=== PATIENT | female | born 1975 | race Caucasian/White ===

== ENCOUNTER 2020-02-20 08:58 | Outpatient (CLI) | payer OTHER, SELFPAY ==
--- NOTE | 2020-02-24 12:16 | P.PCNHOL_ITS ---
Holter/Event Monitor Holter/Event Monitor Date of procedure: 02/20/20 Procedure Type: 48 hour holter monitor Indications: Palpitations Conclusion: 1. 48 hour holter monitor on 02/20/20. 2. Underlying rhythm is sinus rhythm. HR range 60-141 bpm; average HR 94 bpm. 3. There are 3 premature supraventricular complexes. No supraventricular tachycardia. 4. There are 26 premature ventricular complexes. No ventricular tachycardia. 5. No sinoatrial or atrioventricular blocks. No significant pauses greater than 2 seconds. 6. Patient reports dizziness, chest pressure, shortness of breath, lightheade dness which demonstrate sinus rhythm, HR range 91-100 bpm.
== END 2020-02-20 08:59 | disposition home or self-care (01) ==
LOC: ANHCARD 09:01
PROVIDERS: PCP Internal Medicine; Visit Provider Internal Medicine
DX: R00.2 Palpitations (principal); R55 Syncope and collapse
CPT/HCPCS: 93225; 93226

== ENCOUNTER 2023-01-28 08:49 | Outpatient (CLI) | payer OTHER, SELFPAY ==
--- NOTE | ~2023-01-28 | MR_ITS ---
MRI of the brain Clinical History: Migraine headache Technique: Axial and sagittal T1-weighted images were acquired. These were followed by axial T2-weigh felicity, diffusion weighted, gradient, and FLAIR images. Following intravenous administration of 17 cc Mu ltiHance gadolinium, T1-weighted fat-sat imaging was performed in the axial and coronal planes. Findings: There is no abnormal signal in the brain parenchyma. No acute infarct, intracranial hemorrh age, or mass lesion. Ventricles and subarachnoid spaces are unremarkable. Orbits are unremarkable. Paranasal sinuses and m astoid air cells are clear. Major intracranial flow voids appear intact. Sagittal midline structures are intact. No abnormal postcontrast enhancement identified. IMPRESSION: Unremarkable exam. Reviewed, dictated and finalized at location M. IMPRESSION: Unremarkable exam.
== END 2023-01-28 08:50 ==
LOC: MICIMG 08:50
PROVIDERS: PCP Clinical Nurse Specialist; Visit Provider Clinical Nurse Specialist
DX: G43.909 Migraine, unspecified, not intractable, without status migrainosus (principal)
CPT/HCPCS: 70553; A9577

== ENCOUNTER → 2023-08-14 13:18 | Outpatient (CLI) | payer OTHER, SELFPAY ==
--- NOTE | ~2023-08-14 | MM_ITS ---
EXAMINATION: MM screening cora BI w amrik HISTORY: Screening TECHNIQUE: Craniocaudal and mediolateral oblique 3-D tomosynthesis images were obtained and synthetic 2-D images were generated. CAD analysis was submitted and interpreted. COMPARISON: No prior mammogram is available for comparison at this institution. BREAST PARENCHYMAL COMPOSITION: Not dense: There are scattered areas of fibroglandular density. FINDINGS: There is focal asymmetry in the upper outer quadrant of the right breast posteriorly. There are no suspicious masses, calcifications or architectural distortion in the left breast to suggest m alignancy. IMPRESSION: 1. Focal right breast asymmetry, upper outer quadrant. 2. Additional mammographic views and possible breast ultrasound are recommended. BI-RADS Category 0: Incomplete: Needs additional imaging evaluation. Reviewed, dictated and finalized at location A. 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 Focal right breast asymmetry, upper outer quadrant. 2. Additional mammographic views and possible breast ultrasound are recommended . BI-RADS Category 0: Incomplete: Needs additional imaging evaluation.
== END ==
PROVIDERS: PCP Obstetrics & Gynecology; Visit Provider Obstetrics & Gynecology
DX: Z12.31 Encounter for screening mammogram for malignant neoplasm of breast (principal); R92.8 Other abnormal and inconclusive findings on diagnostic imaging of breast
CPT/HCPCS: 77063; 77067

== ENCOUNTER 2023-09-08 12:55 | Outpatient (CLI) | payer OTHER, SELFPAY ==
--- NOTE | ~2023-09-08 | XR_ITS ---
XR shoulder LT min 2V DATE: 09/08/2023 13:13 INDICATION: Left shoulder pain TECHNIQUE: 4 views COMPARISON: None FINDINGS: No fracture or dislocation, periosteal reaction or bone destruction or abnormal soft tissue calcification. IMPRESSION: Negative Reviewed, dictated and finalized at location L. IMPRESSION: Negative
== END 2023-09-08 12:56 ==
PROVIDERS: PCP Clinical Nurse Specialist; Visit Provider Clinical Nurse Specialist
DX: M25.512 Pain in left shoulder (principal)
CPT/HCPCS: 73030

== ENCOUNTER 2023-09-30 08:43 | Outpatient (CLI) | payer OTHER, SELFPAY ==
--- NOTE | ~2023-09-30 | MMUS_ITS ---
EXAMINATION: MM diagnostic cora RT w amrik, US breast RT limited HISTORY: Focal asymmetry in upper outer quadrant of right breast on August 14, 2023 screening mammo gram TECHNIQUE: Additional 3-D tomosynthesis images of the right breast were performed and synthetic 2-D i mages were generated. CAD analysis was submitted and interpreted. High resolution upper outer and low er-outer quadrant right breast ultrasound was performed. COMPARISON: 04/12/2014 [facility] bilateral screening mammogram August 14, 2023 bilateral screening mammogram BREAST PARENCHYMAL COMPOSITION: There are scattered areas of fibroglandular density. FINDINGS: MAMMOGRAPHIC FINDINGS: There is a history of reduction mammoplasty in 2001. There is stable chronic architectural distortion without significant new or developing density of the right breast compared to 04/12/2014. ULTRASOUND: There is broad area of shadowing in the right breast at 8:00 5 cm from the nipple, without abnormal v ascularity on color flow imaging , most likely due to scarring from reduction mammoplasty. IMPRESSION: 1. Status post reduction mammoplasty with chronic stable architectural distortion since 04/12/2014 2. Routine annual mammographic screening is recommended BI-RADS Category 2: Benign finding(s). Reviewed, dictated and finalized at location A. IMPRESSION: 1. Status post reduction mammoplasty with chronic stable architectural distorti on since 04/12/2014 2. Routine annual mammographic screening is recommended BI-RADS Category 2: Benign finding(s).
== END 2023-09-30 08:44 ==
LOC: MICIMG 08:43
PROVIDERS: PCP Clinical Nurse Specialist; Visit Provider Clinical Nurse Specialist
DX: R92.8 Other abnormal and inconclusive findings on diagnostic imaging of breast (principal)
CPT/HCPCS: 76642; 77061; 77065; G0279

== ENCOUNTER 2023-10-21 15:30 | Outpatient (RCR) | payer OTHER, SELFPAY ==
[2023-09-14 13:55] VITALS: BP_SYST 90
--- NOTE | 2023-09-14 15:10 | OPREHPOC ---
Outpatient Therapy Plan of Care This is a Multidisciplinary Plan of Care that may contain components documented by all disciplines (PT, OT, and ST.) PT Problem 1 PT Problem #1 Knowledge Deficit PT Goal 1 Goal *indep with HEP * good posture of shoulder with exercises PT Problem 2 PT Problem #2 Pain PT Goal 1 Goal 1* pt report pain at worst rating of 4/10 2* pt report times of NO pain in shoulder 3* pt report with sleeping awaken 1x/night 4* Quick DASH self assessment functional score of 30% limitation in activity level PT Problem 3 PT Problem #3 Impaired Strength PT Goal 1 Goal increase strength of L shoulder, to increase use of L arm for self care and home tasks: pt able to perform 5 reps in standing 1* flexion to 140' 2* abduction to 100' PT Problem 4 PT Problem #4 Impaired Flexibility PT Goal 1 Goal improve flexibility of L shoulder with supine active-assisted ROM: 1* flexion 150' 2* abduction 120' 3* standing IR, reach behind back, palm to above waist
--- NOTE | 2023-09-14 15:10 | PTOPEVAL1 ---
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; doing all of her home and work tasks with increase pain in L shoulder; Reported Pain Level Pain Score Self Report Additional Pain Score Comments pain range in the past week 4-810; throbs lateral shoulder, aches, shoots into fingertips- not able to state which fingertips numbness in palm and fingers-- feels like carpal tunnel pain, used the phone alot today and speaker phone does not always work when need to talk loud to elderly pts; increase pain: using L arm, lift arm overhead or behind back, lie on L side increase pain L elbow, wrist with driving and typing awaken from sleeping 2-3 x/night due to shoulder pain; normal sleep position is on R/L side; decrease pain: naproxen, ice; have not used heat Assessment PT Clinical Summary Juanita has the diagnosis of L shoulder pain, radicular into L fingers. Her history includes neck pain, L carpal tunnel and ulnar release surgery, breast reduction surgery. Quick DASH self assessment functional score of 45% limitation in activity. Her work is computer use and she has a dog that pulls on the leash, that she holds in her L hand. Sleep is disrupted and she has decreased use of her L arm due to pain. With the evaluation: she has rounded shoulder posture with increased cervical extension; decreased active ROM of L shoulder flexion, abduction and IR motions, with
[2023-10-21 15:15] VITALS: BP_SYST 130
--- NOTE | 2023-10-21 15:53 | PTOPDC ---
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 Compared to the initial evaluation: pain rating from 4-8/10 to 0-4/10; self assessment Quick DASH rating from 45 to 18% limitation in activity level; decreased radicular pain into L UE- recently only had after 30 minutes of raking in her yard; reported sleeping tolerance from awakening 2-3x/night to 1-2 x/wk; increased strength and use of L UE with home and self care tasks. Indep with HEP and posture correction. Active L shoulder ROM in standing: flexion 155', abduction 130', IR- reach behind back, palm to above waist and ER- reach palm to back of head. The goals were achieved. Discharge PT services. She is to continue with her HEP and posture monitoring. Plan of Care PT Services Indicated No
== END 2023-10-21 17:05 | disposition home or self-care (01) ==
LOC: ANHPT 15:30
PROVIDERS: PCP Clinical Nurse Specialist; Visit Provider Clinical Nurse Specialist
DX: M25.512 Pain in left shoulder (principal)
CPT/HCPCS: 97014; 97110; 97140; 97161; 97530; G0283

== ENCOUNTER 2025-06-06 08:11 | Emergency (ER) | payer OTHER, SELFPAY ==
--- NOTE | 2025-06-06 08:12 | ED_ITS ---
HPI - URI/Sore Throat General Chief Complaint: Upper Respiratory Infection Stated Complaint: Sinus Time Seen by Provider: 06/06/25 08:19 Source: patient, RN notes reviewed and old records reviewed Mode of arrival: ambulatory Limitations: no limitations History of Present Illness HPI Narrative: 50-year-old female presents to the [facility] with complaints of sore throat and sinus congestion. Patient reports on Thursday, 4 days ago started with a sore throat. Thursday congestion started, worse yesterday with a sore throat woke up this morning with headache. Did take ibuprofen Today. Last couple days she did take Mucinex. Denies fevers, cough, chest pain, abdominal pain, nausea or vomiting Onset (ago): day(s) (4) Treatments prior to arrival: ibuprofen and cold medicine Related Data Home Medications ?Medication ?Instructions ?Recorded ?Confirmed ?Last Taken ?Type Lactobacillus rhamnosus GG 5 PO 01/08/21 02/16/25 Unkn own History billion cell oral powder packet ([employer]) coconut oil 1,000 mg capsule mg PO 01/08/21 02/16/25 U nknown History norethindrone (contraceptive) 0.35 0.35 mg PO DAILY 02/16/25 Unknown History mg tablet cholecalciferol (vitamin D3) 125 125 mcg PO DAILY 08/1402/16/25 Unknown History mcg (5,000 unit) capsule Allergies Allergy/AdvReac Type Severity Reaction Status Date / Time prednisone Allergy Intermediate Rash Verified 06/06/25 08:13 Review of Systems Review of Systems: All systems reviewed & are unremarkable except as noted in HPI and below Constitutional: Constitutional: Reports as per HPI and Reports headache(s) ENT: Reports as per HPI, Reports nasal congestion and Reports sore throat Cardiovascular: Cardiovascular: Reports no additional cardiovascular complaints, Denies chest pain and Denies dyspnea Respiratory: Respiratory: Reports no additional respiratory complaints, Denies chest congestion, Denies cough and Denies dyspnea Gastrointestinal: Gastrointestinal: Reports no additional gastrointestinal complaints Musculoskeletal: Musculoskeletal: Reports no additional musculoskeletal complaints Integumentary/Breasts: Skin/Breast: Reports system reviewed and no additional complaints, except as docu PMFSH Past Medical History Medical History Near syncope Middle ear infection Acute tympanomastoiditis of right side FH: cholecystectomy delivery delivered Depression Anxiety Surgical History Surgical History History of carpal tunnel surgery 08/2020 History of ear surgery Right ear 03/2020 Status post breast reduction Family History Family History Mother Family history of thyroid disease Daughter Rafael-Danlos syndrome Social History Social History Smoking status: Never smoker Alcohol intake: current Lack of Transportation: No Lack of Food: Never True Current Housing: I Have Housing Concerned About Future Housing: No Difficulty Paying Gas/Electric Bills: No Difficulty Paying for Meds: No Currently Unemployed: No Education: Master's Degree or Higher Difficulty w/ Childcare or Family Care: No Comments At the time of my signature, I reviewed and agree with the nursing past medical, surgical, social, and family history. There is no relevant family history pertinent to the patient complaint. Exam Const: General: cooperative, healthy appearing, comfortable, no acute distress, well developed, alert and well nourished Nutritional Appearance: well nourished Orientation/consciousness: patient oriented x3 Limitations: no limitations HENMT: Head: normal to inspection Ears: hearing grossly normal bilaterally, external ears normal and TM abnormal perforated without discharge on the right ( chronic); with no myringotomy tubes present Face/Nose/Sinus: Normal external nose present, Normal nares present and No nasal discharge present Face and sinus: normal facial exam and face symmetric Mouth: Yes Normal oral and palatal mucosa present, Yes lip normal, Yes tongue normal and Yes moist mucous membranes Throat: uvula midline, posterior oropharynx abnormal erythema; no edema, no exudates and no lacerations and no uvular edema Eyes: General: appearance normal, both eyes and all related structures Alignment and Position: alignment normal Neck: Neck: normal visual inspection, full ROM, no lymphadenopathy and no meningeal signs Chest: Chest palpation & inspection: normal inspection of the chest Resp: Effort & Inspection: normal respiratory effort and able to speak in complete sentences Auscultation: clear to auscultation bilaterally, no crackles, no rales, no rhonchi and no wheezes Cardio: Rate: regular rate Skin: General skin exam: normal color and no rashes or lesions noted Neuro: General: patient oriented x3, gait normal, moves all extremities and no meningeal signs Cognition (Neuro): normal cognition Speech: normal speech Gait exam (Neuro): Normal gait present Extrem: General: normal to inspection, full ROM, capillary refill normal and normal gait Psych: Appearance: grossly normal and well kempt Mental Status: mental status grossly normal Speech and movement: Normal speech and movement present and Clear speech present Affect: normal affect Attitude: cooperative Course Course Level of Care: Express Care Visit Vital Signs Vital signs: Vital Signs Temperature 97.2 F L 06/06/25 08:20 Pulse Rate 92 06/06/25 08:20 Respiratory Rate 18 06/06/25 08:20 Blood Pressure 135/93 H 06/06/25 08:20 Pulse Oximetry 100 06/06/25 08:20 Oxygen Delivery Room Air 06/06/25 08:20 Temperature 97.2 F L 06/06/25 08:20 Pulse Rate 92 06/06/25 08:20 Respiratory Rate 18 06/06/25 08:20 Blood Pressure 135/93 H 06/06/25 08:20 Pulse Oximetry 100 06/06/25 08:20 Oxygen Delivery Room Air 06/06/25 08:20 reviewed MDM MDM Narrative Medical decision making narrative: patient sitting in exam room. Patient is nontoxic, vitals stable patient presents with 4 day history of sore throat, sinus congestion worse yesterday. Did take 1 ibuprofen today. Denies any fevers, chest pain, abdominal pain. Flu, COVID, strep are negative, will send for strep culture. Patient is appropriate for outpatient treatment of viral URI, viral pharyngitis Discharge instructions reviewed with patient, as well as provided in writing per nursing staff. The instructions also include specific and strict return/GO TO THE ER as well as f/u information. All questions have been answered, and the patient deny any further questions with discharge and discharge plan. Some parts of this dictation were generated by voice recognition software and may contain typographical and/or grammatical inaccuracies. Differential Diagnosis Differential Diagnosis: Differential diagnostic considerations for upper respiratory infection include upper respiratory infection, croup, otitis media, sinusitis, viral infection, bronchitis, influenza, pharyngitis, strep, uvulitis.? Medical Records I have reviewed the following patient records and this information was taken into consideration when formulating the assessment and plan.: previous ER visits and previous clinic visits Lab Data Labs: Lab Results 06/06/25 06/06/25 Range/Units 08:15 08:35 POC Influenza A Ag Negative (Negative) POC Influenza B Ag Negative (Negative) POC SARS CoV-2 Ag Negative (Negative) POC Grp A Strep Screen Negative (Negative) reviewed Discharge Plan Discharge Clinical Impression: Pharyngitis, Sinusitis Patient Disposition: Home Condition: Stable Instructions: Antibiotic Form, Pharyngitis (ED), Sinusitis (ED) Additional Instructions: Your rapid strep swab was negative today at [facility]. A throat culture will be sent to the laboratory for further testing. If the test is positive, you will receive a phone call within 48 hours and an appropriate antibiotic will be initiated at that time. Your rapid COVID test were negative Your rapid flu test was negative Your symptoms are likely due to a viral illness, which is not treated with antibiotics. Typically viral infections last 7-10 days, can linger for couple of weeks. It is very important to treat your symptoms. Drink plenty of water, Gatorade, Pedialyte, ice pops or Jell-O. -Alternate Tylenol and Motrin per package directions for fever or pain. You can alternate every 4 hours -Antihistamine medication such as Zyrtec/Claritin/Fabiola during the day can help improve symptoms. -doing daily nasal irrigations can help relieve pressure your sinuses. Things like a Neti pot -Use Flonase twice a day for 5 days then daily to help reduce the inflammation and dry up your sinuses. -You can also use Mucinex. Be sure to drink plenty of water with this medication at least 8 ounces with every dose and it is important to drink 8 to 10 glasses of water per day. Water is a natural decongestant -Eat and drink things that are easy to swallow, like tea or soup, or popsicles. -Oral rinses such as: Salt water gargles and/or may use topical anesthetic (eg. Chloraseptic spray) or lozenges to relieve dryness or throat pain). -Frequent hand washing or hand outbound call center representative is one of the best ways to prevent spread of infection. -Using a vaporizer or humidifier at night will also help thin secretions and help with coughing up phlegm. -Follow up with primary care provider in 7-10 days if condition is not improving - For new or worsening symptoms go directly to the nearest ER Patient Language: Setswana Prescriptions: No Action norethindrone (contraceptive) 0.35 mg tablet 0.35 mg PO DAILY coconut oil 1,000 mg capsule PO [employer] Pro[employer]otics 5 billion cell powder in packet PO hydroxyzine HCl 10 mg tablet 10 mg PO BID PRN (Reason: anxiety) Qty: 60 3RF cholecalciferol (vitamin D3) 125 mcg (5,000 unit) capsule 125 mcg PO DAILY bupropion HCl [Wellbutrin XL] 150 mg tablet extended release 24 hr 150 mg PO QAM Qty: 90 1RF lisinopril 5 mg tablet 5 mg PO DAILY Qty: 90 1RF venlafaxine 37.5 mg tablet See Rx Instructions .ROUTE .COMPLEX Qty: 180 1RF Dose Instruction: TAKE 1 TABLET ORALLY TWICE A DAY LAST REFILL UNTIL SEEN Rx Instructions: TAKE 1 TABLET ORALLY TWICE A DAY rizatriptan 10 mg tablet 10 mg PO Q2H PRN (Reason: migraine headache) Qty: 9 5RF Rx Instructions: Ok to repeat dose one after 2 hours. Do not exceed 30 mg in 24 hours. Follow-up/Referrals: Mason Baird DO [Primary Care Provider, Internal Medicine] - 1 Week Clinical Impression: Sinusitis; Pharyngitis Stand Alone Forms: Work/School Release IP Time of Disposition: 08:43
[2025-06-06 08:20] VITALS: BP 135/93; PULSE 92; RESP 18; TEMP 36.2; O2SAT 100
[2025-06-06 09:01] LABS: EDCOVIDSCREEN Negative (Negative); EDINFLUASCREEN Negative (Negative); EDINFLUBSCREEN Negative (Negative)
[2025-06-06 09:01] LABS: EDSTREPNEGPOS1 Negative (Negative)
== END 2025-06-06 08:50 | disposition home or self-care (01) ==
PROVIDERS: Emergency Provider Nurse Practitioner; PCP Internal Medicine
DX: J02.9 Acute pharyngitis, unspecified (principal); J32.9 Chronic sinusitis, unspecified; Z20.822 Contact with and (suspected) exposure to COVID-19; F41.9 Anxiety disorder, unspecified; F32.A Depression, unspecified
CPT/HCPCS: 87081; 87426; 87804; 87880; 99213; G0463

== ENCOUNTER 2025-06-16 17:43 | Emergency (ER) | payer OTHER, SELFPAY ==
--- NOTE | ~2025-06-16 | XR_ITS ---
XR ankle LT min 3V 06/16/2025 18:04 INDICATION: Left ankle pain after fall PROCEDURE: 4 views left ankle COMPARISON: No prior studies for comparison. FINDINGS: Fracture, dislocation or subluxation is not identified. The soft tissues appear within normal limits. No foreign bodies are identified. Small degenerative calcaneal enthesophyte. There are small loose bodies distal to the medial malleolus, consistent with remote trauma. Mild lateral soft tissue swelling. IMPRESSION: 1: Mild lateral soft tissue swelling. No acute fracture. Reviewed, dictated and finalized at location O. R TECHNICIAN
[2025-06-16 17:54] VITALS: BP 138/85; PULSE 94; RESP 16; TEMP 36.8; O2SAT 97
--- NOTE | 2025-06-16 18:13 | ED.LOWEXIN ---
HPI - Extremity Injury (Lower) General Chief Complaint: Extremity Injury, Lower Stated Complaint: FALL Source: patient Mode of arrival: ambulatory (limping) Limitations: no limitations History of Present Illness HPI Narrative: This is a 50 y/o female that presents to the ER with reports of walking down steps and rolling her left ankle. patient denies any other injury. She denies any numbness and tingling to the ankle. Reports she can bear weight but has pain in the lateral malleolus region. Patient has edema to that area. She has been using ice. No other distress noted. MD complaint: ankle injury Onset (ago): minute(s) (just prior to arrival) Injury: Left: ankle Place: home Severity: mild Severity scale (1-10): 3 Relieving factors: rest Exacerbating factors: weight bearing Context: fall Other symptoms: none Treatments prior to arrival: cold therapy Related Data Home Medications ?Medication ?Instructions ?Recorded ?Confirmed ?Last Taken ?Type Lactobacillus rhamnosus GG 5 PO 01/08/21 02/16/25 Unknown History billion cell oral powder packet ([employer]) coconut oil 1,000 mg capsule mg PO 01/08/21 02/16/25 Unknown History norethindrone (contraceptive) 0.35 0.35 mg PO DAILY 12/19/22 02/16/25 Unknown History mg tablet cholecalciferol (vitamin D3) 125 125 mcg PO DAILY 01/21/23 02/16/25 Unknown History mcg (5,000 unit) capsule Allergies Allergy/AdvReac Type Severity Reaction Status Date / Time prednisone Allergy Intermediate Rash Verified 06/16/25 18:12 [facility] Past Medical History Medical History Near syncope Middle ear infection Acute tympanomastoiditis of right side FH: cholecystectomy delivery delivered Depression Anxiety Surgical History Surgical History History of carpal tunnel surgery 08/2020 History of ear surgery Right ear 03/2020 Status post breast reduction Family History Family History Mother Family history of thyroid disease Daughter Rafael-Danlos syndrome Social History Social History (Reviewed 06/06/25 @ 08:28 by MJ Blackmon Smoking status: Never smoker Alcohol intake: current Lack of Transportation: No Lack of Food: Never True Current Housing: I Have Housing Concerned About Future Housing: No Difficulty Paying Gas/Electric Bills: No Difficulty Paying for Meds: No Currently Unemployed: No Education: Master's Degree or Higher Difficulty w/ Childcare or Family Care: No Course Course Emergency Course: This is a 50 y/o female that presents to the ER with reports of walking down steps and rolling her left ankle. patient denies any other injury. She denies any numbness and tingling to the ankle. Reports she can bear weight but has pain in the lateral malleolus region. Patient has edema to that area. She has been using ice. No other distress noted. vitals stable xray of left ankle ordered. Noted left lateral soft tissue swelling no fracture noted. Discussed with patient, Antoni wrap applied. Neurovascular status is intact Post application. Educated on management outpatient. Crutches as needed to assist with ambulation Elevated often. Ice to the area. Continue with anti-inflammatory as prescribed. Follow-up with primary care provider in the next 2-3 days for further evaluation and exam, return to the emergency department a worrisome sign or symptom. Answered all questions to her satisfaction she is agreeable plan. patient denies any further needs or concerns to be addressed prior to discharge Level of Care: Express Care Visit Vital Signs Vital signs: Vital Signs Temperature 98.2 F 06/16/25 17:54 Pulse Rate 94 06/16/25 17:54 Respiratory Rate 16 06/16/25 17:54 Blood Pressure 138/85 06/16/25 17:54 Pulse Oximetry 97 06/16/25 17:54 Oxygen Delivery Room Air 06/16/25 17:54 Temperature 98.2 F 06/16/25 17:54 Pulse Rate 94 06/16/25 17:54 Respiratory Rate 16 06/16/25 17:54 Blood Pressure 138/85 06/16/25 17:54 Pulse Oximetry 97 06/16/25 17:54 Oxygen Delivery Room Air 06/16/25 17:54 MDM MDM Narrative Medical decision making narrative: This is a 50 y/o female that presents to the ER with reports of walking down steps and rolling her left ankle. patient denies any other injury. She denies any numbness and tingling to the ankle. Reports she can bear weight but has pain in the lateral malleolus region. Patient has edema to that area. She has been using ice. No other distress noted. vitals stable xray of left ankle ordered. Noted left lateral soft tissue swelling no fracture noted. Discussed with patient, Antoni wrap applied. Neurovascular status is intact Post application. Educated on management outpatient. Crutches as needed to assist with ambulation Elevated often. Ice to the area. Continue with anti-inflammatory as prescribed. Follow-up with primary care provider in the next 2-3 days for further evaluation and exam, return to the emergency department a worrisome sign or symptom. Answered all questions to her satisfaction she is agreeable plan. patient denies any further needs or concerns to be addressed prior to discharge Differential Diagnosis Differential Diagnosis: left ankles fracture, left ankle sprain Medical Records I have reviewed the following patient records and this information was taken into consideration when formulating the assessment and plan.: previous ER visits and previous clinic visits Imaging Data Attestation: I personally reviewed and interpreted this imaging study as follows: Radiologist's impression: ITS Impressions Ankle X-Ray 06/16/25 18:10 IMPRESSION: 1: Mild lateral soft tissue swelling. No acute fracture. Discharge Plan Discharge Clinical Impression: Left ankle sprain Qualifiers: Encounter type: initial encounter Involved ligament of ankle: unspecified ligament Qualified Code(s): S93.402A - Sprain of unspecified ligament of left ankle, initial encounter Patient Disposition: Home Condition: Stable Instructions: Ankle Sprain (ED) Additional Instructions: Elevated often rest ANTONI wrap for compression Crutches as needed to assist with ambulation Elevated often. Ice to the area. with anti-inflammatory as prescribed. Follow-up with primary care provider in the next 2-3 days for further evaluation and exam, return to the emergency department a worrisome sign or symptom. Patient Language: Greenlandic Prescriptions: New ibuprofen 800 mg tablet 800 mg PO Q6H PRN (Reason: pain) Qty: 20 0RF No Action norethindrone (contraceptive) 0.35 mg tablet 0.35 mg PO DAILY coconut oil 1,000 mg capsule PO [employer] 5 billion cell powder in packet PO hydroxyzine HCl 10 mg tablet 10 mg PO BID PRN (Reason: anxiety) Qty: 60 3RF cholecalciferol (vitamin D3) 125 mcg (5,000 unit) capsule 125 mcg PO DAILY venlafaxine 37.5 mg tablet See Rx Instructions .ROUTE .COMPLEX Qty: 180 1RF Dose Instruction: TAKE 1 TABLET ORALLY TWICE A DAY LAST REFILL UNTIL SEEN Rx Instructions: TAKE 1 TABLET ORALLY TWICE A DAY rizatriptan 10 mg tablet 10 mg PO Q2H PRN (Reason: migraine headache) Qty: 9 5RF Rx Instructions: Ok to repeat dose one after 2 hours. Do not exceed 30 mg in 24 hours. bupropion HCl [Wellbutrin XL] 150 mg tablet extended release 24 hr 150 mg PO QAM Qty: 90 1RF lisinopril 5 mg tablet 5 mg PO DAILY Qty: 90 1RF Follow-up/Referrals: Mason Baird DO [Primary Care Provider, Internal Medicine] Time of Disposition: 18:23
== END 2025-06-16 18:35 | disposition home or self-care (01) ==
PROVIDERS: Emergency Provider Nurse Practitioner Family; PCP Internal Medicine
DX: S93.402A Sprain of unspecified ligament of left ankle, initial encounter (principal); X50.9XXA Other and unspecified overexertion or strenuous movements or postures, initial encounter; F41.9 Anxiety disorder, unspecified; F32.A Depression, unspecified
CPT/HCPCS: 73610; 99213; G0463